=== PATIENT | male | born 1995 | race Caucasian/White ===

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

== ENCOUNTER 2017-04-09 12:07 | Emergency (ER) | payer OTHER ==
[~2017-04-09] VITALS: Ht 175.3 cm; Wt 61.4 kg
[2017-04-09 12:54] LABS: HEMATOCRIT 43.5 % (38.0-50.0); MCH 32.6 PG (29.0-34.0); MCHC 34.9 G/DL (30.0-36.0); MCV 93.3 FL (86-99); MEAN PLAT.VOLUME 9.2 uM^3 (9.0-12.4); PLATELET COUNT 227 K/uL (156-360); RBC DIS.WIDTH-CV 11.8 % (11.8-14.6); RBC DIS.WIDTH-SD 40.6 % (39-53); RED BLOOD COUNT 4.66 M/uL (4.00-5.50); WHITE BLOOD COUNT 6.6 K/uL (4.1-10.2)
[2017-04-09 13:04] LABS: CHLORIDE 105 mEq/L (99-109); POTASSIUM 4.1 mEq/L (3.7-5.4); SODIUM 139 mEq/L (136-147)
[2017-04-09 13:06] LABS: GLUCOSE 107 mg/dL (70-99)
[2017-04-09 13:08] LABS: ANION GAP 10 MEQ/L (2-14); TOTAL BILIRUBIN 0.5 mg/dL (0.0-1.0)
[2017-04-09 13:10] LABS: ALKALINE PHOSPHATASE 66 IU/L (3-129); GFR ESTIMATE (CALCULATED) > 59 mL/min/
[2017-04-09 13:11] LABS: UREA NITROGEN (BUN) 14 mg/dL (9-23)
[2017-04-09 13:13] LABS: LIPASE 17 U/L (1.0-51.0)
[2017-04-09 13:28] LABS: ADD MIUA? YES; BILIRUBIN NEGATIVE; BLOOD NEGATIVE; COLOR YELLOW ((YELLOW)); GLUCOSE (STRIP) NEGATIVE; KETONES NEGATIVE; LEUKOCYTES NEGATIVE; NITRITE NEGATIVE; PROTEIN (STRIP) 30; SPECIFIC GRAVITY 1.027 (1.000-1.030); UROBILINOGEN 0.2 MG/DL (0.2-1.0)
[2017-04-09 13:30] LABS: TROP-I INTERPRETATION NEGATIVE; TROPONIN-I < 0.01 ng/mL (0.0-0.30)
[2017-04-09 13:41] LABS: BACTERIA NONE SEEN /HPF; EPITHELIAL CELLS NONE SEEN /HPF; MUCUS 3+ /LPF; RED BLOOD CELLS 0-5 /HPF (0-5); UCUL ADDED? NO; WHITE BLOOD CELLS 0-5 /HPF (0-5)
[2017-04-09] MEDS ORDERED: ROBAXIN500 MG PO (14:40)
[2017-04-09] MEDS ORDERED: MOTRIN600 MG PO (14:40)
[2017-04-09 15:01] VITALS: BP 111/53
== END 2017-04-09 15:03 | disposition home or self-care (01) ==
LOC: EME 12:07
PROVIDERS: Physician Assistant
DX: S29.012A Strain of muscle and tendon of back wall of thorax, initial encounter (principal); R10.10 Upper abdominal pain, unspecified
CPT/HCPCS: 71020; 76705; 76775; 80053; 81003; 83690; 84484; 85027; 93005; 99281; 99284

== ENCOUNTER 2017-04-14 16:39 | Emergency (ER) | payer OTHER ==
[~2017-04-14] VITALS: Ht 175.3 cm; Wt 59.6 kg
[~2017-04-14 16:39] MED LIST changes: +MOTRIN600 MG PO; +ROBAXIN500 MG PO
[2017-04-14 17:32] LABS: HEMATOCRIT 41.3 % (38.0-50.0); MCH 32.7 PG (29.0-34.0); MCHC 35.8 G/DL (30.0-36.0); MCV 91.2 FL (86-99); MEAN PLAT.VOLUME 8.9 uM^3 (9.0-12.4); PLATELET COUNT 245 K/uL (156-360); RBC DIS.WIDTH-CV 11.5 % (11.8-14.6); RED BLOOD COUNT 4.53 M/uL (4.00-5.50); WHITE BLOOD COUNT 6.7 K/uL (4.1-10.2)
[2017-04-14 17:43] LABS: CHLORIDE 105 mEq/L (99-109); POTASSIUM 3.6 mEq/L (3.7-5.4); SODIUM 137 mEq/L (136-147)
[2017-04-14 17:45] LABS: GLUCOSE 97 mg/dL (70-99)
[2017-04-14 17:46] LABS: ANION GAP 10 MEQ/L (2-14)
[2017-04-14 17:48] LABS: TOTAL BILIRUBIN 0.9 mg/dL (0.0-1.0)
[2017-04-14 17:49] LABS: ALKALINE PHOSPHATASE 61 IU/L (3-129); GFR ESTIMATE (CALCULATED) > 59 mL/min/ (58.99-99999)
[2017-04-14 17:50] LABS: UREA NITROGEN (BUN) 14 mg/dL (9-23)
[2017-04-14 17:52] LABS: LIPASE 13 U/L (1.0-51.0)
[2017-04-14] MEDS ORDERED: PEPCID20 MG PO (18:11)
[2017-04-14] MEDS ORDERED: CARAFATE1 GM PO (18:11)
[2017-04-14 18:25] VITALS: BP 127/82
== END 2017-04-14 18:26 | disposition home or self-care (01) ==
LOC: EXP 16:39 → EME 16:39 → EXP 18:26
PROVIDERS: Physician Assistant
DX: R07.89 Other chest pain (principal); R10.13 Epigastric pain; R20.0 Anesthesia of skin; R11.0 Nausea; R01.1 Cardiac murmur, unspecified; I49.8 Other specified cardiac arrhythmias
CPT/HCPCS: 71020; 80053; 83690; 85027; 93005; 99281; 99284